=== PATIENT | female | born 1970 | race Caucasian/White ===

== ENCOUNTER → 2016-08-10 | Outpatient (CLI) | payer OTHER | LOC: MAMMO 14:12 | DX: Z12.31 Encounter for screening mammogram for malignant neoplasm of breast (principal) | CPT/HCPCS: G0202 ==

== ENCOUNTER 2017-09-19 11:15 | Outpatient (RCR) | payer OTHER ==
[2016-01-25 17:32] VITALS: BP 151/84
== END 2017-11-13 | disposition home or self-care (01) ==
LOC: SPEECH
DX: I69.920 Aphasia following unspecified cerebrovascular disease (principal)

== ENCOUNTER → 2018-01-25 | Outpatient (CLI) | payer OTHER ==
[2016-01-25 17:32] VITALS: BP 151/84
== END ==
LOC: MAMMO 15:51
DX: Z12.31 Encounter for screening mammogram for malignant neoplasm of breast (principal)

== ENCOUNTER → 2019-04-30 | Outpatient (CLI) | payer OTHER ==
[2016-01-25 17:32] VITALS: BP 151/84
[2019-04-30 12:39] LABS: EOS # 0.2 (0.04-0.40); EOS % 2.8 % (1.0-5.0); HEMATOCRIT 37.8 % (37.0-47.0); HEMOGLOBIN 11.9 g/dL (12.5-16.0); LYMPH# 2.2 (1.50-4.00); MEAN CELL VOLUME 81 fl (78-100); MEAN CORPUSCULAR HEMOGLOBIN 26 pg (27-31); MEAN CORPUSCULAR HGB CONC 32 g/dL (33-37); MEAN PLATELET VOLUME 9.3 fl (7.4-10.4); MONO # 0.6 (0.20-0.80); NEU # 4.4 (1.40-6.50); PLATELET COUNT 275 K/mm3 (130-400); RED BLOOD COUNT 4.66 M/mm3 (4.10-5.30); RED CELL DISTRIBUTION WIDTH 15.6 % (11.5-14.5); WHITE BLOOD COUNT 7.4 K/mm3 (4.8-10.8)
[2019-04-30 12:43] LABS: ALBUMIN 4.2 g/dL (3.5-5.0)
[2019-04-30 12:44] LABS: POTASSIUM 4.2 mmol/L (3.5-5.1)
[2019-04-30 12:45] LABS: CALCIUM 9.5 mg/dL (8.3-10.5)
[2019-04-30 12:46] LABS: TOTAL PROTEIN 7.2 g/dL (6.4-8.3)
[2019-04-30 12:48] LABS: TOTAL BILIRUBIN 0.3 mg/dL (0.2-1.2)
[2019-04-30 13:37] LABS: URINE APPEARANCE CLEAR; URINE BILIRUBIN NEGATIVE (NEGATIVE); URINE BLOOD NEGATIVE (NEGATIVE); URINE COLOR YELLOW; URINE GLUCOSE NEGATIVE (NEGATIVE); URINE KETONE NEGATIVE (NEGATIVE); URINE LEUKOCYTE ESTERASE NEGATIVE (NEGATIVE); URINE NITRATE NEGATIVE (NEGATIVE); URINE PROTEIN(semi-quant) TRACE mg/dL (NEGATIVE); URINE UROBILINOGEN NORMAL (NORMAL); URINE WBC 0-1 /hpf (0-3)
== END ==
LOC: RAD 12:19
PROVIDERS: Nurse Practitioner Family
DX: R06.02 Shortness of breath (principal); R06.09 Other forms of dyspnea; Z86.73 Personal history of transient ischemic attack (TIA), and cerebral infarction without residual deficits
CPT/HCPCS: Q9967

== ENCOUNTER → 2024-03-27 | Outpatient (CLI) | payer BC | LOC: RAD 11:46 | DX: J45.909 Unspecified asthma, uncomplicated (principal) ==

== ENCOUNTER → 2024-06-13 | Outpatient (CLI) | payer BC | LOC: RAD 14:09 | DX: J22 Unspecified acute lower respiratory infection (principal) ==